=== PATIENT | male | born 2000 | race Caucasian/White ===

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

== ENCOUNTER → 2023-07-27 11:14 | Outpatient (CLI) | payer BC, SELFPAY ==
--- NOTE | ~2023-07-27 | US_ITS ---
EXAMINATION: US scrotum doppler DATE: 07/27/2023 11:36 INDICATION: N50.89 - Other specified disorders of the male genital or... . TECHNIQUE: Grayscale and Doppler ultrasound images of the testes were obtained. COMPARISON: None. FINDINGS: The right testis measures 3.9 x 2.1 x 2.4 cm. The left testis measures 3.7 x 1.6 x 2.4 cm. No testicular mass. There is normal vascular flow to both testes. The right epididymis is normal with normal vascular flow. The left epididymis is normal with normal vascular flow. Incidental note of a 7 mm left epididymal head cyst. No hydroceles. Left varicocele. IMPRESSION: Left varicocele. Otherwise unremarkable scrotal ultrasound findings. Reviewed, dictated and finalized at location K. [employer]
== END ==
PROVIDERS: PCP Physician Assistant Medical; Visit Provider Physician Assistant Medical
DX: N50.89 Other specified disorders of the male genital organs (principal); I86.1 Scrotal varices
CPT/HCPCS: 76870; 93976